=== PATIENT | male | born 1945 | race Asian ===

== ENCOUNTER 2020-06-25 16:06 | Outpatient (CLI) | payer OTHER ==
--- NOTE | 2020-06-25 17:24 | XRAY Report ---
PROCEDURE: Knee Standing LT INDICATIONS: LEFT KNEE PAIN TECHNIQUE: 3 views of the left knee COMPARISON: None. FINDINGS: Suboptimal positioning reportedly due to severe pain at the time the exam. No fracture. Mild narrowing of the medial joint space. Prominent spur at the superior pole of the pat mauricio. Scattered clips seen in the posterior medial soft tissues. Soft tissues: No knee joint effusions. No suspicious soft tissue calcification. Scattered vascular calcifications noted. IMPRESSION: Mild knee joint degeneration. Prominent spurring at the superior pole of the patella. Reviewed by: Mian Arrington MD on 06/25/2020 5:23 PM PDT Approved by: Mian Arrington MD on 06/25/2020 5:23 PM PDT Station ID: [id number]
== END 2020-06-25 16:07 | disposition home or self-care (01) ==
LOC: DI.N 16:06
PROVIDERS: ATTEND Physician Assistant
DX: M25.562 Pain in left knee (principal); M17.12 Unilateral primary osteoarthritis, left knee

== ENCOUNTER 2021-02-05 14:12 | Outpatient (CLI) | payer OTHER ==
[2021-02-05 17:48] LABS: CHOL/HDL RATIO 2.7 (<5.0); CHOLESTEROL 126 mg/dL; HDL CHOLESTEROL 47 mg/dL; LDL CHOLESTEROL,CALCULATED 69 mg/dL; LDL/HDL RATIO 1.5 (<3.6); TRIGLYCERIDES 49 mg/dL; VLDL CHOLESTEROL 10 mg/dL
== END 2021-02-05 14:13 | disposition home or self-care (01) ==
LOC: LAB.N 14:12
PROVIDERS: ATTEND Internal Medicine Cardiovascular Disease
DX: E78.5 Hyperlipidemia, unspecified (principal)
CPT/HCPCS: 36415; 80061; 83721

== ENCOUNTER → 2021-02-05 | Outpatient (CLI) | payer OTHER ==
--- NOTE | 2021-02-05 13:35 | XRAY Report ---
PROCEDURE: Knee 3 View RT INDICATIONS: RIGHT KNEE PAIN TECHNIQUE: 3 views of the right knee(s) were acquired. COMPARISON: None. FINDINGS: BONES/JOINT: No acute, displaced fracture or dislocation. Small to moderate suprapatellar joint effus ion. SOFT TISSUES: No significant abnormality. IMPRESSION: 1.No acute osseous abnormality. Reviewed by: Martin Fernandez MD on 02/05/2021 1:33 PM PST Approved by: Martin Fernandez MD on 02/05/2021 1:33 PM PST Station ID: [id number]
== END ==
LOC: DI.N 08:00
PROVIDERS: ATTEND Physician Assistant
DX: M25.561 Pain in right knee (principal)